=== PATIENT | male | born 2000 | race Caucasian/White ===

== ENCOUNTER 2021-05-20 02:13 | Emergency (ER) | payer OTHER ==
[~2021-05-20] VITALS: Ht 190.5 cm; Wt 83.9 kg
[2021-05-20 02:22] VITALS: BP 139/93
[2021-05-20] MEDS ORDERED: PROAIR HFA8.5 GM INH (02:52)
[2021-05-20] MEDS ORDERED: NAPROSYN500 MG PO (02:52)
--- NOTE | 2021-05-20 08:11 | EKG ---
[address] [address] ELECTROCARDIOGRAM REPORT Name: CARRILLO LONG Room #: [facility]#: [id number] Admission: 05/20/21 Attend Phys: Discharge: 05/20/21 Date of : [birth year] Report #: [id number] [facility] ED Test Date: 2021-05-20 Test Time: 02:18:55 Pat Name: CARRILLO LONG Department: Room: Gender: [employer]: [facility] : 2000 Requested By: Alfred Javier Order Number: [id number] MD: Claude Coreas Measurements Intervals [place] Rate: 110 P: 74 NE: 151 QRS: 91 QRSD: 95 T: 31 QT: 320 QTc: 433 Interpretive Statements Sinus tachycardia Left atrial enlargement Borderline right axis deviation No previous ECG available for comparison Electronically Signed On 05-20-2021 8:11:22 CDT by Claude Coreas [email or web address] <ELECTRONICALLY SIGNED> By: Claude Coreas MD, [facility] 05/20/21 0811 0218 0218 Claude Coreas MD, FACC /EPI
== END 2021-05-20 03:15 | disposition home or self-care (01) ==
LOC: ER 02:13
PROVIDERS: Emergency Medicine
DX: R07.89 Other chest pain (principal); Z20.822 Contact with and (suspected) exposure to COVID-19